=== PATIENT | female | born 1995 | race Caucasian/White ===

== ENCOUNTER 2017-01-27 17:27 | Emergency (ER) | payer OTHER ==
[~2017-01-27] VITALS: Ht 152.4 cm; Wt 113.8 kg
[2017-01-27 18:02] LABS: HEMATOCRIT 34.1 % (36.0-46.0); MCH 29.8 PG (29.0-34.0); MCHC 33.1 G/DL (30.0-36.0); PLATELET COUNT 220 K/uL (156-360); RBC DIS.WIDTH-CV 12.8 % (11.8-14.6); RBC DIS.WIDTH-SD 42.1 % (39-53); RED BLOOD COUNT 3.79 M/uL (3.80-5.20); WHITE BLOOD COUNT 5.6 K/uL (4.1-10.2)
[2017-01-27 18:11] LABS: CHLORIDE 106 mEq/L (99-109); POTASSIUM 4.2 mEq/L (3.7-5.4); SODIUM 140 mEq/L (136-147)
[2017-01-27 18:14] LABS: GLUCOSE 98 mg/dL (70-99)
[2017-01-27 18:15] LABS: ANION GAP 7 MEQ/L (2-14)
[2017-01-27 18:16] LABS: TOTAL BILIRUBIN 0.3 mg/dL (0.0-1.0)
[2017-01-27 18:17] LABS: ALKALINE PHOSPHATASE 57 IU/L (3-129)
[2017-01-27 18:18] LABS: UREA NITROGEN (BUN) 10 mg/dL (9-23)
[2017-01-27 18:21] LABS: GFR ESTIMATE (CALCULATED) > 59 mL/min/
[2017-01-27 18:26] VITALS: BP 123/79
[2017-01-27 18:26] LABS: QUANTITATIVE HCG < 4.0 MIU/ML
== END 2017-01-27 18:27 | disposition home or self-care (01) ==
LOC: EME 17:27
PROVIDERS: Nurse Practitioner Family
DX: R51 Headache (principal); R11.0 Nausea; R68.83 Chills (without fever)
CPT/HCPCS: 80053; 81003; 84702; 85027; 99281; 99283